=== PATIENT | male | born 1995 | race Two or more races ===

== ENCOUNTER 2019-04-16 13:23 | Emergency (ER) | payer BC, MEDICAID ==
[~2019-04-16] VITALS: Ht 175.3 cm; Wt 105.2 kg
[~2019-04-16 13:23] MED LIST: BUTACAP
[2019-04-16 14:09] LABS: Urine Bacteria NONE SEEN /hpf (None Seen); Urine Blood TRACE /uL (Negative); Urine Specific Gravity 1.025 (1.001-1.035); Urine WBC 5 /hpf (0 - 3)
[2019-04-16] MEDS ORDERED: SODIUM CHLORIDE 0.9% 1,000 ML IV ONE ×2 (14:19)
[2019-04-16] MEDS ORDERED: PIPERACILLIN-TAZOB 3.375GM 100 ML IV ONE (15:15)
[2019-04-16 15:19] LABS: Calcium 9.1 mg/dL (8.5-10.1); Potassium 3.1 mmol/L (3.5-5.1)
[2019-04-16 15:20] LABS: Basophils # (auto) 0.1 uL; Basophils % (auto) 0.5 % (0.0-2.0); Eosinophils # (auto) 0.2 uL; Eosinophils % (auto) 1.2 % (0.0-7.0); Hematocrit 44.5 % (41.0-53.0); Hemoglobin 15.3 g/dL (13.5-17.5); Lymphocytes # (auto) 1.7 uL; Lymphocytes % (auto) 11.7 % (10.0-50.0); Mean Corpuscular Hemoglobin 28.9 pg (28.0-32.0); Mean Corpuscular Hgb Conc. 34.4 g/dL (32.0-36.0); Mean Corpuscular Volume 84.1 fL (80.0-100.0); Monocytes # (auto) 2.1 uL; Monocytes % (auto) 14.3 % (0.0-12.0); Neutrophils # (auto) 10.4 uL; Neutrophils % (auto) 72.3 % (37.0-80.0); Platelet Count (auto) 225 10^3/uL (140-450); Red Cell Distribution Width 13.2 % (11.8-14.3); White Blood Cell 14.4 10^3/uL (4.4-10.8)
[2019-04-16 15:23] LABS: Bilirubin, Total 1.1 mg/dL (0.2-1.0); Total Protein 8.3 g/dL (6.4-8.2)
[2019-04-16 17:02] VITALS: BP 143/90
== END 2019-04-16 17:29 | disposition short-term general hospital (02) ==
LOC: ER 13:23
DX: K52.9 Noninfective gastroenteritis and colitis, unspecified (principal); R11.2 Nausea with vomiting, unspecified
CPT/HCPCS: 36415; 74176; 80053; 81001; 82150; 83605; 83690; 85025; 87040; 96361; 96365; 96366; 99285; J2543; J7030

== ENCOUNTER 2019-04-28 13:25 | Emergency (ER) | payer BC ==
[~2019-04-28] VITALS: Ht 175.3 cm; Wt 104.3 kg
[2019-04-28 13:42] VITALS: BP 127/81
== END 2019-04-28 15:40 | disposition home or self-care (01) ==
LOC: ER 13:25
DX: Z48.03 Encounter for change or removal of drains (principal)

== ENCOUNTER 2024-01-17 03:10 | Emergency (ER) | payer BC ==
[~2024-01-17] VITALS: Ht 172.7 cm; Wt 110.7 kg
[2024-01-17] MEDS ORDERED: AMIT25TA20 PO (03:51)
--- NOTE | 2024-01-17 03:51 | ED.PDOC ---
Eye-HPI HPI Comments This is a 28 year old male patient presents to the ED chief complaint of b ilateral ear ringing. Patient reports since 4:30 p.m. [place] protection he has been having bilateral ear ringing in vertigo. He notes difficulty sleeping due to tinnitus. Chief Complaint: Earache Time Seen by MD: 03:30 Primary Care Provider: COTY [place] Notes: Nurses Notes, Medications, Allergies Allergies: Coded Allergies: NO KNOWN ALLERGIES (Unverified , 05/28/10) Home Meds Active Scripts Amitriptyline Hcl (Amitriptyline Hcl) 25 Mg Tab, 1 TAB PO QPM for 14 Days, #14 TAB 2 Refills Prov:MICHELLE BURCH [employer] 01/17/24 Reported Medications [id number] (Fioricet/Codeine) Cap 05/28/10 Information Source: Patient Mode of Arrival: Ambulatory Past Medical History PAST MEDICAL HISTORY: Denies Surgical History: Denies all surgeries Family History Family History: Reviewed,noncontributory to illness Social History Smoker: Non-Smoker Alcohol: Denies ETOH Use Drugs: Denies Drug Use Lives In: Home Constitutional: denies: chills, diaphoresis, fatigue, fever, malaise, sweats, weakness, others EENTM: reports: ear pain, hearing loss; denies: blurred vision, double vision, ear bleeding, ear discharge, ear drainage, ear ringing, eye pain, eye redness, mouth pain, mouth swelling, nasal discharge, nose bleeding, nose congestion, nose pain, photophobia, tearing, throat pain, throat swelling, voice changes, others Respiratory: denies: cough, hemoptysis, orthopnea, SOB at rest, shortness of breath, SOB with excertion, stridor, wheezing, others Cardiovascular: denies: chest pain, dizzy spells, diaphoresis, Dyspnea on exertion, edema, irregular heart beat, left arm pain, lightheadedness, pa lpitations, PND, syncope, others Gastrointestinal: denies: abdomen distended, abdominal pain, blood streaked bowels, constipated, diarrhea, dysphagia, difficulty swallowing, hematemesis, melena, nausea, poor appetite, poor fluid intake, rectal bleeding, rectal pain, vomiting, others Genitourinary: denies: burning, dysuria, flank pain, frequency, hematuria, incontinence, penile discharge, penile sore, pain, testicle pain, testicle swelling, urgency, others Neurological: denies: dizziness, fainting, headache, left sided numbness, left sided weakness, numbness, paresthesia, pre-existing deficit, right sided numbness, right sided weakness, seizure, speech problems, tingling, tremors, weakness, others Musculoskeletal: denies: back pain, gout, joint pain, joint swelling, muscle pain, muscle stiffness, neck pain, others Integumetry: denies: bruises, change in color, change in hair/nails, dryness, laceration, lesions, lumps, rash, wounds, others Allergic/Immunocompromised: denies: Difficulty Healing, Frequent Infections, Hives, Itching, others Hematologic/Lymphatic: denies: anemia, blood clots, easy bleeding, easy br uising, swollen glands, others Endocrine: denies: excessive hunger, excessive sweating, excessive thirst, excessive urination, flushing, intolerance to cold, intolerance to heat, unexplained weight gain, unexplained weight loss, others Psychiatric: denies: anxiety, bipolar disorder, depression, hopeless, panic disorder, schizophrenia, sleepless, suicidal, others Physical Exam General Appearance: No Apparent Distress, Normal HEENT: Normal ENT Inspection, Pharynx Normal, TMs Normal Neck: Full Range of Motion, Non-Tender Respiratory: Lungs Clear, No Respiratory Distress, Normal Breath Sounds Cardiovascular: No Murmur, Normal Peripheral Pulses, Regular Rate/Rhythm Breast Exam: Deferred Gastrointestinal: Non Tender, Soft Genitalia: Deferred Pelvic: Deferred Rectal: Deferred Extremities: Normal range of motion Musculoskeletal : Apperance: Normal Neurologic: Alert, sitecore developer II-XII nml as Tested, No Motor Deficits, Normal Affect, Normal Mood, No Sensory Deficits Cerebellar Function: Normal Reflexes: Normal Skin: Dry, Normal Color, Warm Lymphatic: No Adenopathy Was a procedure done? Was a procedure done?: No EENT DIFF Eye: N/A Ear: Barotrauma, Perforation X-Ray, Labs, Meds, VS Vital Signs Date Time Temp Pulse Resp B/P (MAP) Pulse Ox O2 Delivery O2 Flow Rate FiO2 01/17/24 03:23 97.7 80 18 104/106 (105) 99 Time of 1ST Reevaluation: 03:47 Reevaluation 1ST: Improved Patient Education/Counseling: Diagnosis, Treatment, Prognosis, Need For Follow Up Family Education/Counseling: Need For Follow Up Departure 1 Departure Time of Disposition: 03:47 Impression: Primary Impression: Tinnitus, bilateral Disposition: 01 HOME / SELF CARE / HOMELESS Condition: Stable e-Prescriptions Amitriptyline Hcl (Amitriptyline Hcl) 25 Mg Tab 1 TAB PO QPM for 14 Days, #14 TAB 2 Refills Prov: MICHELLE BURCH 01/17/24 Critical Care Note Critical Care Time?: No Stability Stability form required: MICHELLE Lord Jan 17, 2024 03:51
[2024-01-17 04:21] VITALS: BP 145/80; PULSE 75; RESP 18; TEMP 97.6; O2SAT 97
== END 2024-01-17 04:23 | disposition home or self-care (01) ==
LOC: ER 03:10 → EEVIPCON 03:10 → ER 04:22
DX: H93.13 Tinnitus, bilateral (principal); Z79.899 Other long term (current) drug therapy